=== PATIENT | female | born 1930 | race Caucasian/White ===

== ENCOUNTER → 2019-01-07 | Outpatient (CLI) | payer MEDICARE, OTHER ==
--- NOTE | 2019-01-07 14:23 | KCIC ---
MRI of the cervical spine without contrast 01/07/2019 CLINICAL HISTORY: Chronic neck pain. Balance problems. Unsteady gait. TECHNIQUE: Unenhanced T1-weighted, T2-weighted and inversion recovery sagittal and gradient echo and T2-weighted axial images of the cervical spine were obtained. FINDINGS: Minimal lateral curvature of the cervical spine is seen convex to the right. There is straightening of the normal cervical lordosis. Degenerative signal changes and loss of height are seen involving all of the disks of the cervical spine. Degenerative signal changes are seen within the marrow surrounding these discs. No area of abnormal signal intensity is seen involving the cervical spinal cord. At the C2-3 disc space there is a minimal generalized disc bulge. Degenerative changes are seen involving the uncovertebral and facet joints, right greater than left. These findings do not result in significant central spinal canal or neural foraminal stenosis. At the C3-4 disc space there is a mild generalized disc bulge. Degenerative changes are seen involving the uncovertebral and facet joints, right greater than left. These findings efface the anterior and posterior CSF resulting in mild central spinal canal stenosis without evidence of cord impingement. No neural foraminal stenosis is seen. At the C4-5 disc space there is a mild generalized disc bulge. Degenerative changes are seen involving the uncovertebral and facet joints, right greater than left. These findings efface the anterior and posterior CSF resulting in mild central spinal canal stenosis without evidence of cord impingement. Mild right neural foraminal stenosis is seen. The left neural foramen is patent. At the C5-6 disc space there is a mild generalized disc bulge. Degenerative changes are seen involving the uncovertebral and facet joints bilaterally. These findings efface the anterior and posterior CSF resulting in mild central spinal canal stenosis without evidence of cord impingement. Mild to moderate left greater than right neural foraminal stenosis is seen. At the C6-7 disc space there is a minimal generalized disc bulge. Degenerative changes are seen involving the uncovertebral and facet joints bilaterally. These findings do not result in significant central spinal canal or neural foraminal stenosis. At the C7-T1 disc space there is a minimal generalized disc bulge. Degenerative changes are seen involving the uncovertebral and facet joints bilaterally. These findings do not result in significant central spinal canal or neural foraminal stenosis. IMPRESSION: Degenerative changes are seen throughout the cervical spine. These findings result in mild central spinal canal stenosis at C3-4, C4-5 and C5-6 without evidence of cord impingement. Mild right neural foraminal stenosis is seen at C4-5. Mild to moderate left greater than right neural foraminal stenosis is seen at C5-6. Electronically signed by: Humberto Deleon MD (01/07/2019 2:20 PM) [facility]
== END | disposition home or self-care (01) ==
LOC: KCIC MRI 07:49
PROVIDERS: ATTEND Physical Medicine & Rehabilitation
DX: M48.02 Spinal stenosis, cervical region (principal); M47.813 Spondylosis without myelopathy or radiculopathy, cervicothoracic region; M50.23 Other cervical disc displacement, cervicothoracic region
CPT/HCPCS: 72141

== ENCOUNTER 2019-10-28 21:41 | Inpatient (IN) | payer MEDICARE, OTHER ==
[~2019-10-28] VITALS: Ht 170.2 cm; Wt 63.1 kg
[2019-10-28] MEDS ORDERED: ACETAMINOPHEN 500 MG TABLET PO ONE (23:45)
[2019-10-29] MEDS ORDERED: MORPHINE SULFATE 2 MG/ML VIAL. IV PRN
--- NOTE | 2019-10-29 00:06 | PHYS DOC ---
Past Medical History Past Medical History: CAD, COPD, Dementia, Heart Disease, Renal Failure Past Surgical History: No Surgical History Alcohol Use: None Adult General Chief Complaint Chief Complaint: MECHANICAL FALL HPI HPI 89-year-old female who fell at nursing facility with complaints of left hip pain, shortened externally rotated this happened around 5:30 PM. X-rays obtained as an outpatient unable to view images however repeat here reveals evidence of left hip fracture. Patient complains of pain on exam however no nausea or vomiting. Patient denies any headache, visual change, nausea, vomiting, ab dominal pain. Patient has underlying history of COPD, oxygenation therapy at night, coronary artery disease. Daughter is at bedside with questions answered. Review of Systems Review of Systems Constitutional: Denies fever or chills [] Respiratory: Denies cough or shortness of breath [] Cardiovascular: No additional information not addressed in HPI [] GI: Denies abdominal pain, nausea, vomiting, bloody stools or diarrhea [] : Denies dysuria or hematuria [] Musculoskeletal: left hip Neurologic: Denies headache, focal weakness or sensory changes [] All other systems were reviewed and found to be within normal limits, except as documented in this note. Current Medications Current Medications Current Medications Medications (Trade) Dose Ordered Sig/Marcell Start Time Stop Time Status Last Admin Dose Admin Acetaminophen (Tylenol) 1,000 mg 1X ONCE 10/28/19 23:45 10/28/19 23:46 DC 10/28/19 23:45 1,000 MG Allergies Allergies Allergies Coded Allergies Type Severity Reaction Last Updated Verified No Known Drug Allergies 10/28/19 No Physical Exam Physical Exam Constitutional: Well developed, well nourished, no acute distress, non-toxic appearance. [] HENT: Normocephalic, atraumatic, bilateral external ears normal, oropharynx moist, no oral exudates, nose normal. [] Eyes: PERRLA, EOMI, conjunctiva normal, no discharge. [] Cardiovascular:Heart rate regular rhythm, no murmur [] Lungs & Thorax: Bilateral breath sounds clear to auscultation [] Abdomen: Bowel sounds normal, soft, no tenderness, no masses, no pulsatile masses. [] Skin: Warm, dry, no erythema, no rash. [] Back: No tenderness, no CVA tenderness. [] Extremities: TTP left hip, shortened, externally rotated [] Neurologic: Alert and oriented X 3, no focal deficits noted. [] Psychologic: Affect normal, judgement normal, mood normal. [] Current Patient Data Vital Signs Vital Signs Date Time Temp Pulse Resp B/P (MAP) Pulse Ox O2 Delivery O2 Flow Rate FiO2 10/28/19 21:45 97.8 79 18 158/68 (98) 94 Room Air 97.8 EKG EKG EKG reviewed, normal sinus rhythm, heart rate 77, normal axis, no evidence of ST elevation [place], interpretation time [id number][] Radiology/Procedures Radiology/Procedures [facility] [address] [place] [address] IMAGING REPORT Signed PATIENT: NIKKY BERRY LACCOUNT: [id number] : 1930 LOCATION: [address] [place] [address] AGE: 89 SEX: F EXAM STATUS: ADM IN ORD. PHYSICIAN: CLAUDE LEACH MD REASON: left hip fracture PROCEDURE: HIP 1V LEFT EXAM: AP pelvis DATE: 10/28/2019 11:34 PM INDICATION: Left hip pain, injury COMPARISON: No Prior FINDINGS/ IMPRESSION: Nonstandard projection of the pelvis submitted for evaluation. Intertrochanteric left hip fracture is seen with varus deformity and proximal migration of the distal component. Decreased bone mineral density. Moderate to large volume colonic gas and stool limits evaluation of the sacrum and spine. Electronically signed by: Burton Pate MD (10/29/2019 12:08 AM) [facility] [place] DICTATED and SIGNED BY: BURTON PATE MD DATE: 10/29/19 0008 [] Course & Med Decision Making Course & Med Decision Making Pertinent Labs and Imaging studies reviewed. (See chart for details) []89-year-old female who fell at nursing facility with complaints of left hip pain, shortened externally rotated this happened around 5:30 PM. X-rays obtained as an outpatient unable to view images however repeat here reveals evidence of left hip fracture. Patient complains of pain on exam however no nausea or vom iting. Patient denies any headache, visual change, nausea, vomiting, abdominal pain. Patient has underlying history of COPD, oxygenation therapy at night, coronary artery disease. Daughter is at bedside with questions answered. Labs reviewed Xray with evidence of intertrochanteric hip fracture Creat 2.5 - CKD Discussed findings with patient and family at bedside Recommend admit and ortho consult discussed with Dr. Senia Verduzco Disclaimer Dax Disclaimer This electronic medical record was generated, in whole or in part, using a voice recognition dictation system. Departure Departure Impression: Primary Impression: Intertrochanteric fracture of left femur Additional Impressions: COPD without exacerbation Chronic kidney disease Disposition: ADMITTED INPATIENT Admitting Physician: HIMFrench Condition: STABLE Referrals: LORENA DOMINGUEZ DO (PCP) Problem Qualifiers Primary Impression: Intertrochanteric fracture of left femur Encounter type: initial encounter Fracture type: closed Fracture alignment: nondisplaced Qualified Codes: S72.145A - Nondisplaced intertrochanteric fracture of left femur, initial encounter for closed fracture Additional Impressions: Chronic kidney disease Chronic kidney disease stage: stage 3 (moderate) Qualified Codes: N18.3 - Chronic kidney disease, stage 3 (moderate) CLAUDE LEACH MD Oct 29, 2019 00:06
[2019-10-29 00:07] LABS: BASO # 0.1 x10^3/uL (0.0-0.2); BASO % 1 % (0-3); EOS # 0.1 x10^3/uL (0.0-0.7); EOS % 1 % (0-3); HEMATOCRIT 30.1 % (36.0-47.0); LYMPH # 0.6 x10^3/uL (1.0-4.8); LYMPH % 7 % (24-48); MEAN CORPUSCULAR HEMOGLOBIN 30 pg (25-35); MEAN CORPUSCULAR HGB CONC 33 g/dL (31-37); MEAN CORPUSCULAR VOLUME 90 fL (79-100); MONO # 0.5 x10^3/uL (0.0-1.1); MONO % 6 % (0-9); NEUT # 7.6 x10^3/uL (1.8-7.7); NEUT % 86 % (31-73); PLATELET COUNT 207 x10^3/uL (140-400); RED BLOOD COUNT 3.34 x10^6/uL (3.50-5.40); RED CELL DISTRIBUTION WIDTH 14.7 % (11.5-14.5); WHITE BLOOD COUNT 8.9 x10^3/uL (4.0-11.0)
--- NOTE | 2019-10-29 00:10 | RAD ---
EXAM: AP View of the chest DATE: 10/28/2019 11:19 PM INDICATION: Surgery, preoperative COMPARISON: No Prior FINDINGS/ IMPRESSION: The heart is not enlarged. Atherosclerotic calcifications of the tortuous aorta are seen. Normal bilateral basilar patchy opacities likely atelectasis. No pleural effusion or pneumothorax. Electronically signed by: Burton Tran MD (10/29/2019 12:07 AM) [facility] [place]
--- NOTE | 2019-10-29 00:11 | RAD ---
EXAM: AP pelvis DATE: 10/28/2019 11:34 PM INDICATION: Left hip pain, injury COMPARISON: No Prior FINDINGS/ IMPRESSION: Nonstandard projection of the pelvis submitted for evaluation. Intertrochanteric left hip fracture is seen with varus deformity and proximal migration of the distal component. Decreased bone mineral density. Moderate to large volume colonic gas and stool limits evaluation of the sacrum and spine. Electronically signed by: Burton Tran MD (10/29/2019 12:08 AM) [facility]
[2019-10-29 00:13] LABS: PROTHROMBIN TIME PATIENT 15.5 SEC (11.7-14.0)
[2019-10-29 00:16] LABS: CALCIUM 8.5 mg/dL (8.5-10.1); CREATININE 2.5 mg/dL (0.6-1.0); GFR 18.2; POTASSIUM 4.1 mmol/L (3.5-5.1)
[2019-10-29 00:31] LABS: ALBUMIN/GLOBULIN RATIO 0.9 (1.0-1.7); TOTAL BILIRUBIN 0.3 mg/dL (0.2-1.0); TOTAL PROTEIN 6.2 g/dL (6.4-8.2)
[2019-10-29 00:32] LABS: % BANDS 3 % (0-9); % LYMPHS 5 % (24-48); % MONOS 3 % (0-10); % SEGS 89 % (35-66); PLT ESTIMATE ADEQUATE (ADEQUATE)
--- NOTE | 2019-10-29 01:00 | NUR ---
The patient, NIKKY BERRY, 89 y/o, F admitted by DIEGO MARISCAL III, DO, was given written information regarding hospital policies, unit procedures and contact persons. Valuables were checked and given to family.
[2019-10-29 03:16] VITALS: BP 116/72
[2019-10-29] MEDS: IPRATRPIUM/ALBUTEROL 0.5/2.5MG 3 ML NEBU. NEB SCH ×6 (06:49→20:08)
[2019-10-29 07:00] VITALS: BP 121/52
--- NOTE | 2019-10-29 07:30 | EKG ---
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
[2019-10-29] MEDS ORDERED: ASPI-630 PO (07:55)
--- NOTE | 2019-10-29 08:09 | RAD ---
EXAM: HIP LEFT 1 VIEW WITH PELVIS. HISTORY: Fall, fracture. COMPARISON: 10/28/2019. FINDINGS: There is an impacted, medially angulated, comminuted fracture of the left intertrochanteric femur. The joint spaces of both hips are maintained for patient age. Osteopenia appears mild to moderate for patient age. No pelvic fractures are identified. There are vertebroplasty changes at L3. Atherosclerotic calcifications are noted. IMPRESSION: 1. Comminuted, medially angulated fracture of the left intertrochanteric femur. Electronically signed by: Mary Wade MD (10/29/2019 8:06 AM) [facility]
[2019-10-29] MEDS ORDERED: MELA5TAB11 SL (08:16)
[2019-10-29] MEDS ORDERED: MIRA25TA PO (08:16)
[2019-10-29] MEDS ORDERED: MEMA10TA PO (08:16)
[2019-10-29] MEDS ORDERED: CALC3.7S5 NS (08:16)
[2019-10-29] MEDS ORDERED: BUDE0.5A NEB (08:16)
[2019-10-29] MEDS ORDERED: NITR0.4T22 SL (08:16)
[2019-10-29] MEDS ORDERED: ESCITALOPRAM OX10 MG PO (08:16)
[2019-10-29] MEDS ORDERED: LOSA-73 PO (08:16)
[2019-10-29] MEDS ORDERED: IPRA3AMP29 NEB (08:16)
--- NOTE | 2019-10-29 09:14 | PDOC1 ---
History and Physical Date of Admission Date of Admission DATE: 10/29/19 TIME: 09:13 Identification/Chief Complaint Chief Complaint SEEN IN ER , Fell at nursing facility with complaints of left hip pain, shortened externally rotated this happened around 5:30 PM 10/28 . X-rays obtained images however repeat here reveals evidence of left hip fracture. Patient complains of pain on exam however no nausea or vomiting. // denies any headache, visual change, nausea, vomiting, abdominal pain. HX underlying history of COPD, oxygenation therapy at night, coronary artery disease. STATES SHE NEVER SMOKED , BUT HAS HX COPD, [place] DID NOT S[place], DENIES COUGH, does not know correct year or month, but otherwise has fair remote memory Past Medical History Past Medical History Past Medical History Past Medical History Past Medical History: CAD, COPD, Dementia, Heart Disease, Renal Failure Past Surgical History: No Surgical History Alcohol Use: None Cardiovascular: CAD, HTN Musculoskeletal: Osteoarthritis Family History Family History: Hypertension Social History Smoke: No ALCOHOL: none Drugs: None Current Problem List Problem List Problems Medical Problems: (1) Chronic kidney disease Status: Acute (2) Intertrochanteric fracture of left femur Status: Acute Current Medications Current Medications Current Medications Acetaminophen (Tylenol) 1,000 mg 1X ONCE PO Last administered on 10/28/19at 23:45; Start 10/28/19 at 23:45; Stop 10/28/19 at 23:46; Status DC Ondansetron HCl (Zofran) 4 mg PRN Q8HRS PRN IV NAUSEA/VOMITING 1ST CHOICE; Start 10/29/19 at 00:00; Stop 10/29/19 at 23:59 Morphine Sulfate (Morphine Sulfate) 2 mg PRN Q2HR PRN IV SEVERE PAIN 7-10 Last administered on 10/29/19at 01:24; Start 10/29/19 at 00:00; Stop 10/29/19 at 23:59 Albuterol/ Ipratropium (Duoneb) 3 ml RTQID NEB Last administered on 10/29/19at 06:49; Start 10/29/19 at 08:00; Stop 10/30/19 at 07:59 Active Scripts Active Reported NITROGLYCERIN SubLingual (Nitroglycerin) 0.4 Mg Tab.subl 0.4 Mg SL PRN Q5MIN PRN Namenda (Memantine Hcl) 10 Mg Tablet 10 Mg PO BID Myrbetriq (Mirabegron) 25 Mg Tab.er.24h 25 Mg PO DAILY Melatonin 5 Mg Tab.subl 1 Tab SL QHS 30 Days Losartan Potassium 50 Mg Tablet 6.25 Mg PO DAILY08 Escitalopram Oxalate 10 Mg Tablet 1 Tab PO QHS Duoneb 0.5-3(2.5) Mg/3 Ml (Albuterol/Ipratropium) 3 Ml Ampul.neb 3 Ml NEB QID Calcitonin-Higdon (Calcitonin,Higdon,Synthetic) 3.7 Ml [place].pump 1 [place] NS DAILY 30 Days Budesonide 0.5 Mg/2 Ml Ampul.neb 1 Vial NEB BID Aspirin 81 Mg Tab.chew 1 Tab PO DAILY Allergies Allergies: Coded Allergies: No Known Drug Allergies (Unverified , 10/28/19) ROS Review of System Review of Systems Review of Systems Constitutional: Denies fever or chills [] Respiratory: Denies cough or shortness of breath [] Cardiovascular: No additional information not addressed in HPI [] GI: Denies abdominal pain, nausea, vomiting, bloody stools or diarrhea [] : Denies dysuria or hematuria [] Musculoskeletal: left hip Neurologic: Denies headache, focal weakness or sensory changes [] 14 PT systems were reviewed and found to be within normal limits, except as documented Physical Exam Physical Exam Physical Exam Physical Exam Constitutional: Well developed, well nourished, no acute distress, non-toxic appearance. [] HENT: Normocephalic, atraumatic, bilateral external ears normal, oropharynx moist, no oral exudates, nose normal. [] Eyes: PERRLA, EOMI, conjunctiva normal, no discharge. [] Cardiovascular:Heart rate regular rhythm, no murmur [] Lungs & Thorax: Bilateral breath sounds clear to auscultation [] Abdomen: Bowel sounds normal, soft, no tenderness, no masses, no pulsatile masses. [] Skin: Warm, dry, no erythema, no rash. [] Back: No tenderness, no CVA tenderness. [] Extremities: TTP left hip, shortened, externally rotated [] Neurologic: Alert no focal deficits noted. [] Psychologic: Affect normal, mood normal. [] General: Cooperative Lungs: Clear to auscultation Breasts: Not examined Abdomen: Normal bowel sounds, Soft Rectal Exam: not examined Extremities: No cyanosis Psych/Mental Status: Mood NL Vitals Vitals Vital Signs Date Time Temp Pulse Resp B/P (MAP) Pulse Ox O2 Delivery O2 Flow Rate FiO2 10/29/19 07:00 98.3 72 18 121/52 (75) 94 Room Air 98.3 Labs Labs Laboratory Tests Test 10/28/19 23:55 White Blood Count 8.9 x10^3/uL (4.0-11.0) Red Blood Count 3.34 x10^6/uL (3.50-5.40) Hemoglobin 10.0 g/dL (12.0-15.5) Hematocrit 30.1 % (36.0-47.0) Mean Corpuscular Volume 90 fL (79-100) Mean Corpuscular Hemoglobin 30 pg (25-35) Mean Corpuscular Hemoglobin Concent 33 g/dL (31-37) Red Cell Distribution Width 14.7 % (11.5-14.5) Platelet Count 207 x10^3/uL (140-400) Neutrophils (%) (Auto) 86 % (31-73) Lymphocytes (%) (Auto) 7 % (24-48) Monocytes (%) (Auto) 6 % (0-9) Eosinophils (%) (Auto) 1 % (0-3) Basophils (%) (Auto) 1 % (0-3) Neutrophils # (Auto) 7.6 x10^3/uL (1.8-7.7) Lymphocytes # (Auto) 0.6 x10^3/uL (1.0-4.8) Monocytes # (Auto) 0.5 x10^3/uL (0.0-1.1) Eosinophils # (Auto) 0.1 x10^3/uL (0.0-0.7) Basophils # (Auto) 0.1 x10^3/uL (0.0-0.2) Segmented Neutrophils % 89 % (35-66) Band Neutrophils % 3 % (0-9) Lymphocytes % 5 % (24-48) Monocytes % 3 % (0-10) Platelet Estimate Adequate (ADEQUATE) Prothrombin Time 15.5 SEC (11.7-14.0) Prothromb Time International Ratio 1.3 (0.8-1.1) Sodium Level 139 mmol/L (136-145) Potassium Level 4.1 mmol/L (3.5-5.1) Chloride Level 103 mmol/L (98-107) Carbon Dioxide Level 25 mmol/L (21-32) Anion Gap 11 (6-14) Blood Urea Nitrogen 34 mg/dL (7-20) Creatinine 2.5 mg/dL (0.6-1.0) Estimated GFR (Cockcroft-Gault) 18.2 BUN/Creatinine Ratio 14 (6-20) Glucose Level 139 mg/dL (70-99) Calcium Level 8.5 mg/dL (8.5-10.1) Total Bilirubin 0.3 mg/dL (0.2-1.0) Aspartate Amino Transf (AST/SGOT) 15 U/L (15-37) Alanine Aminotransferase (ALT/SGPT) 7 U/L (14-59) Alkaline Phosphatase 70 U/L (46-116) Total Protein 6.2 g/dL (6.4-8.2) Albumin 3.0 g/dL (3.4-5.0) Albumin/Globulin Ratio 0.9 (1.0-1.7) Laboratory Tests Test 10/28/19 23:55 White Blood Count 8.9 x10^3/uL (4.0-11.0) Red Blood Count 3.34 x10^6/uL (3.50-5.40) Hemoglobin 10.0 g/dL (12.0-15.5) Hematocrit 30.1 % (36.0-47.0) Mean Corpuscular Volume 90 fL (79-100) Mean Corpuscular Hemoglobin 30 pg (25-35) Mean Corpuscular Hemoglobin Concent 33 g/dL (31-37) Red Cell Distribution Width 14.7 % (11.5-14.5) Platelet Count 207 x10^3/uL (140-400) Neutrophils (%) (Auto) 86 % (31-73) Lymphocytes (%) (Auto) 7 % (24-48) Monocytes (%) (Auto) 6 % (0-9) Eosinophils (%) (Auto) 1 % (0-3) Basophils (%) (Auto) 1 % (0-3) Neutrophils # (Auto) 7.6 x10^3/uL (1.8-7.7) Lymphocytes # (Auto) 0.6 x10^3/uL (1.0-4.8) Monocytes # (Auto) 0.5 x10^3/uL (0.0-1.1) Eosinophils # (Auto) 0.1 x10^3/uL (0.0-0.7) Basophils # (Auto) 0.1 x10^3/uL (0.0-0.2) Segmented Neutrophils % 89 % (35-66) Band Neutrophils % 3 % (0-9) Lymphocytes % 5 % (24-48) Monocytes % 3 % (0-10) Platelet Estimate Adequate (ADEQUATE) Prothrombin Time 15.5 SEC (11.7-14.0) Prothromb Time International Ratio 1.3 (0.8-1.1) Sodium Level 139 mmol/L (136-145) Potassium Level 4.1 mmol/L (3.5-5.1) Chloride Level 103 mmol/L (98-107) Carbon Dioxide Level 25 mmol/L (21-32) Anion Gap 11 (6-14) Blood Urea Nitrogen 34 mg/dL (7-20) Creatinine 2.5 mg/dL (0.6-1.0) Estimated GFR (Cockcroft-Gault) 18.2 BUN/Creatinine Ratio 14 (6-20) Glucose Level 139 mg/dL (70-99) Calcium Level 8.5 mg/dL (8.5-10.1) Total Bilirubin 0.3 mg/dL (0.2-1.0) Aspartate Amino Transf (AST/SGOT) 15 U/L (15-37) Alanine Aminotransferase (ALT/SGPT) 7 U/L (14-59) Alkaline Phosphatase 70 U/L (46-116) Total Protein 6.2 g/dL (6.4-8.2) Albumin 3.0 g/dL (3.4-5.0) Albumin/Globulin Ratio 0.9 (1.0-1.7) Images Images Intertrochanteric left hip fracture is seen with varus deformity and proximal migration of the distal component. Decreased bone mineral density. EXAM: AP View of the chest DATE: 10/28/2019 11:19 PM INDICATION: Surgery, preoperative COMPARISON: No Prior FINDINGS/ IMPRESSION: The heart is not enlarged. Atherosclerotic calcifications of the tortuous aorta are seen. Normal bilateral basilar patchy opacities likely atelectasis. No pleural effusion or pneumothorax. Electronically signed by: Burton Tran MD (10/29/2019 12:07 AM) [facility] DICTATED and SIGNED BY: BURTON TRAN MD VTE Prophylaxis Ordered VTE Prophylaxis Devices: No VTE Pharmacological Prophylaxi: Yes Assessment/Plan Assessment/Plan IMPRESSION mechanical fall ACUTE Intertrochanteric left hip fracture is seen with varus deformity and prox imal migration of the distal component. Decreased bone mineral density. C/W OSTEOPOROSIS COPD hx HTN DEMENTIA. mild-moderate PLAN ADMIT ORTHO CONSULT IV PAIN CONTROL IV FLUID SUPPORT DVT PROPHYLAXIS MAYNOR ECHEVARRIA MD Oct 29, 2019 09:14
[2019-10-29 11:00] VITALS: BP 128/56
--- NOTE | 2019-10-29 12:55 | PDOC2 ---
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 Due to pain and inability to ambulate she was brought into the emergency department and admitted for care of her hip fracture. She is complaining of left hip pain, denies hitting anything else on the way down, denies any preceding symptoms. Her pain is worse with any attempted weightbearing or movement of her hip. His low bit better at rest in bed. Current Problem List Problem List Problems Medical Problems: (1) Chronic kidney disease Status: Acute (2) Intertrochanteric fracture of left femur Status: Acute Current Medications Current Medications Current Medications Acetaminophen (Tylenol) 1,000 mg 1X ONCE PO Last administered on 10/28/19at 23:45; Start 10/28/19 at 23:45; Stop 10/28/19 at 23:46; Status DC Ondansetron HCl (Zofran) 4 mg PRN Q8HRS PRN IV NAUSEA/VOMITING 1ST CHOICE; Start 10/29/19 at 00:00; Stop 10/29/19 at 23:59 Morphine Sulfate (Morphine Sulfate) 2 mg PRN Q2HR PRN IV SEVERE PAIN 7-10 Last administered on 10/29/19at 01:24; Start 10/29/19 at 00:00; Stop 10/29/19 at 23:59 Albuterol/ Ipratropium (Duoneb) 3 ml RTQID NEB Last administered on 10/29/19at 06:49; Start 10/29/19 at 08:00; Stop 10/30/19 at 07:59 Fentanyl Citrate (Fentanyl 2ml Vial) 25 mcg PRN Q5MIN PRN IV MILD PAIN 1-3; Start 10/30/19 at 07:00; Stop 10/31/19 at 06:59 Fentanyl Citrate (Fentanyl 2ml Vial) 50 mcg PRN Q5MIN PRN IV MODERATE TO SEVERE PAIN; Start 10/30/19 at 07:00; Stop 10/31/19 at 06:59 Morphine Sulfate (Morphine Sulfate) 1 mg PRN Q10MIN PRN IV SEVERE PAIN 7-10; Start 10/30/19 at 07:00; Stop 10/31/19 at 06:59 Ringer's Solution 1,000 ml @ 30 mls/hr Q24H IV ; Start 10/30/19 at 07:00; Stop 10/30/19 at 18:59 Lidocaine HCl (Xylocaine-Mpf 1% 2ml Vial) 2 ml PRN 1X PRN ID PRIOR TO IV START; Start 10/30/19 at 07:00; Stop 10/31/19 at 06:59 Hydromorphone HCl (Dilaudid) 0.5 mg PRN Q10MIN PRN IV SEV PAIN, Second choice; Start 10/30/19 at 07:00; Stop 10/31/19 at 06:59 Prochlorperazine Edisylate (Compazine) 5 mg PACU PRN PRN IV NAUSEA, MRX1; Start 10/30/19 at 07:00; Stop 10/31/19 at 06:59 Active Scripts Active Reported NITROGLYCERIN SubLingual (Nitroglycerin) 0.4 Mg Tab.subl 0.4 Mg SL PRN Q5MIN PRN Namenda (Memantine Hcl) 10 Mg Tablet 10 Mg PO BID Myrbetriq (Mirabegron) 25 Mg Tab.er.24h 25 Mg PO DAILY Melatonin 5 Mg Tab.subl 1 Tab SL QHS 30 Days Losartan Potassium 50 Mg Tablet 6.25 Mg PO DAILY08 Escitalopram Oxalate 10 Mg Tablet 1 Tab PO QHS Duoneb 0.5-3(2.5) Mg/3 Ml (Albuterol/Ipratropium) 3 Ml Ampul.neb 3 Ml NEB QID Calcitonin-[place] (Calcitonin,[place],Synthetic) 3.7 Ml [place].pump 1 [place] NS DAILY 30 Days Budesonide 0.5 Mg/2 Ml Ampul.neb 1 Vial NEB BID Aspirin 81 Mg Tab.chew 1 Tab PO DAILY Allergies Allergies: Coded Allergies: No Known Drug Allergies (Unverified , 10/28/19) ROS General: No: Chills, Night Sweats, Fatigue, Malaise, Appetite, Other PSYCHOLOGICAL ROS: No: Anxiety, Behavioral Disorder, Concentration difficultie, Decreased libido, Depression, Disorientation, Hallucinations, Hostility, Irritablity, Memory difficulties, Mood Swings, Obsessive thoughts, Physical abuse, Sexual abuse, Sleep disturbances, Suicidal ideation, Other Eyes: No Blurry vision, No Decreased vision, No Double vision, No Dry eyes, No Excessive tearing, No Eye Pain, No Itchy Eyes, No Loss of vision, No Photophobia, No Scotomata, No Uses contacts, No Uses glasses, No Other HEENT: No: Heacaches, Visual Changes, Hearing change, Nasal congestion, Nasal discharge, Oral lesions, Sinus pain, Sore Throat, Epistaxis, Sneezing, Snoring, Tinnitus, Vertigo, Vocal changes, Other ALLERGY AND IMMUNOLOGY: No: Hives, Insect Bite Sensitivity, Itchy/Watery Eyes, Nasal Congestion, Post Nasal Drip, Seasonal Allergies, Other Hematological and Lymphatic: No: Bleeding Problems, Blood Clots, Blood Transfusions, Brusing, Night Sweats, Pallor, Swollen Lymph Nodes, Other ENDOCRINE: No: Breast Changes, Galactorrhea, Hair Pattern Changes, Hot Flashes, Malaise/lethargy, Mood Swings, Palpitations, Polydipsia/polyuria, Skin Changes, Temperature Intolerance, Unexpected Weight Changes, Other Respiratory: YES: SOB with excertion; No: Cough, Hemoptysis, Orthopnea, Pleuritic Pain, Shortness of breath, Sputum Changes, Stridor, Tachypnea, Wheezing, Other Cardiovascular: No Chest Pain, No Palpitations, No Orthopnea, No Paroxysmal Noc . Dyspnea, No Edema, No Lt Headedness, No Other Gastrointestinal: No Nausea, No Vomiting, No Abdominal Pain, No Diarrhea, No Constipation, No Melena, No Hematochezia, No Other Genitourinary: No Dysuria, No Frequency, No Incontinence, No Hematuria, No Retention, No Discharge, No Urgency, No Pain, No Flank Pain, No Other, No , No , No , No , No , No , No Musculoskeletal: Yes Joint Pain Neurological: No Behavorial Changes, No Bowel/Bladder ControlChng, No Confusion, No Dizziness, No Gait Disturbance, No Headaches, No Impaired Coord/balance, No Memory Loss, No Numbness/Tingling, No Seizures, No Speech Problems, No Tremors, No Visual Changes, No Weakness, No Other Physical Exam General: Alert, Oriented X3 HEENT: Atraumatic, EOMI Lungs: Other (respirations are unlabored with symmetric chest rise) Heart: Regular rate Abdomen: Soft, No tenderness Extremities: No edema, Normal pulses Neuro: Normal speech, Strength at 5/5 X4 ext, Sensation intact Psych/Mental Status: Mental status NL, Mood NL MUSCULOSKELETAL: Other (left lower extremity is shortened and slightly actually rotated. Normal motor and sensation are present in her feet. No tenderness at pelvis knees or ankles) Vitals VITALS Vital Signs Date Time Temp Pulse Resp B/P (MAP) Pulse Ox O2 Delivery O2 Flow Rate FiO2 10/29/19 11:00 98.6 67 18 128/56 (80) 94 Room Air 98.6 Labs Labs Laboratory Tests Test 10/28/19 23:55 White Blood Count 8.9 x10^3/uL (4.0-11.0) Red Blood Count 3.34 x10^6/uL (3.50-5.40) Hemoglobin 10.0 g/dL (12.0-15.5) Hematocrit 30.1 % (36.0-47.0) Mean Corpuscular Volume 90 fL (79-100) Mean Corpuscular Hemoglobin 30 pg (25-35) Mean Corpuscular Hemoglobin Concent 33 g/dL (31-37) Red Cell Distribution Width 14.7 % (11.5-14.5) Platelet Count 207 x10^3/uL (140-400) Neutrophils (%) (Auto) 86 % (31-73) Lymphocytes (%) (Auto) 7 % (24-48) Monocytes (%) (Auto) 6 % (0-9) Eosinophils (%) (Auto) 1 % (0-3) Basophils (%) (Auto) 1 % (0-3) Neutrophils # (Auto) 7.6 x10^3/uL (1.8-7.7) Lymphocytes # (Auto) 0.6 x10^3/uL (1.0-4.8) Monocytes # (Auto) 0.5 x10^3/uL (0.0-1.1) Eosinophils # (Auto) 0.1 x10^3/uL (0.0-0.7) Basophils # (Auto) 0.1 x10^3/uL (0.0-0.2) Segmented Neutrophils % 89 % (35-66) Band Neutrophils % 3 % (0-9) Lymphocytes % 5 % (24-48) Monocytes % 3 % (0-10) Platelet Estimate Adequate (ADEQUATE) Prothrombin Time 15.5 SEC (11.7-14.0) Prothromb Time International Ratio 1.3 (0.8-1.1) Sodium Level 139 mmol/L (136-145) Potassium Level 4.1 mmol/L (3.5-5.1) Chloride Level 103 mmol/L (98-107) Carbon Dioxide Level 25 mmol/L (21-32) Anion Gap 11 (6-14) Blood Urea Nitrogen 34 mg/dL (7-20) Creatinine 2.5 mg/dL (0.6-1.0) Estimated GFR (Cockcroft-Gault) 18.2 BUN/Creatinine Ratio 14 (6-20) Glucose Level 139 mg/dL (70-99) Calcium Level 8.5 mg/dL (8.5-10.1) Total Bilirubin 0.3 mg/dL (0.2-1.0) Aspartate Amino Transf (AST/SGOT) 15 U/L (15-37) Alanine Aminotransferase (ALT/SGPT) 7 U/L (14-59) Alkaline Phosphatase 70 U/L (46-116) Total Protein 6.2 g/dL (6.4-8.2) Albumin 3.0 g/dL (3.4-5.0) Albumin/Globulin Ratio 0.9 (1.0-1.7) Laboratory Tests Test 10/28/19 23:55 White Blood Count 8.9 x10^3/uL (4.0-11.0) Red Blood Count 3.34 x10^6/uL (3.50-5.40) Hemoglobin 10.0 g/dL (12.0-15.5) Hematocrit 30.1 % (36.0-47.0) Mean Corpuscular Volume 90 fL (79-100) Mean Corpuscular Hemoglobin 30 pg (25-35) Mean Corpuscular Hemoglobin Concent 33 g/dL (31-37) Red Cell Distribution Width 14.7 % (11.5-14.5) Platelet Count 207 x10^3/uL (140-400) Neutrophils (%) (Auto) 86 % (31-73) Lymphocytes (%) (Auto) 7 % (24-48) Monocytes (%) (Auto) 6 % (0-9) Eosinophils (%) (Auto) 1 % (0-3) Basophils (%) (Auto) 1 % (0-3) Neutrophils # (Auto) 7.6 x10^3/uL (1.8-7.7) Lymphocytes # (Auto) 0.6 x10^3/uL (1.0-4.8) Monocytes # (Auto) 0.5 x10^3/uL (0.0-1.1) Eosinophils # (Auto) 0.1 x10^3/uL (0.0-0.7) Basophils # (Auto) 0.1 x10^3/uL (0.0-0.2) Segmented Neutrophils % 89 % (35-66) Band Neutrophils % 3 % (0-9) Lymphocytes % 5 % (24-48) Monocytes % 3 % (0-10) Platelet Estimate Adequate (ADEQUATE) Prothrombin Time 15.5 SEC (11.7-14.0) Prothromb Time International Ratio 1.3 (0.8-1.1) Sodium Level 139 mmol/L (136-145) Potassium Level 4.1 mmol/L (3.5-5.1) Chloride Level 103 mmol/L (98-107) Carbon Dioxide Level 25 mmol/L (21-32) Anion Gap 11 (6-14) Blood Urea Nitrogen 34 mg/dL (7-20) Creatinine 2.5 mg/dL (0.6-1.0) Estimated GFR (Cockcroft-Gault) 18.2 BUN/Creatinine Ratio 14 (6-20) Glucose Level 139 mg/dL (70-99) Calcium Level 8.5 mg/dL (8.5-10.1) Total Bilirubin 0.3 mg/dL (0.2-1.0) Aspartate Amino Transf (AST/SGOT) 15 U/L (15-37) Alanine Aminotransferase (ALT/SGPT) 7 U/L (14-59) Alkaline Phosphatase 70 U/L (46-116) Total Protein 6.2 g/dL (6.4-8.2) Albumin 3.0 g/dL (3.4-5.0) Albumin/Globulin Ratio 0.9 (1.0-1.7) Images Images Hip and pelvis x-rays interpreted by myself. She has a intertrochanteric hip fracture. Assessment/Plan Assessment/Plan Today, I did discuss with her and her daughter that I would recommend proceeding with an intramedullary nail. I did discuss the risks, benefits, and alternatives including bleeding, blood clots, expected rehabilitation and recovery, infection and possible sequela, need for additional surgery, failure of fracture to heal, ventilator need, many other respiratory problems, heart attack stroke, among others. They would like to proceed. GALI CARRERA II, MD Oct 29, 2019 12:55
[2019-10-29] MEDS ORDERED: NITROGLYCERIN SUBLINGUAL 0.4 MG BOTTLE OF 25. SL PRN (13:00)
[2019-10-29] MEDS ORDERED: ceFAZolin SODIUM IV Push 1 GM VIAL. IVP ONE (13:00)
[2019-10-29] MEDS ORDERED: IPRATRPIUM/ALBUTEROL 0.5/2.5MG 3 ML NEBU. NEB SCH (13:00)
--- NOTE | 2019-10-29 13:20 | NUR ---
SW following. Discussed with RN. ANGELIC verified pt is from the [facility] (ph: [phone], fax: [phone]), has family involved. Surgery has been consulted. SW will continue to follow for any discharge planning needs.
[2019-10-29] MEDS: ASPIRIN CHEWABLE 81 MG TABLET. PO SCH (14:15)
[2019-10-29] MEDS: LOSARTAN POTASSIUM 25 MG TABLET. PO SCH (14:15)
[2019-10-29 15:00] VITALS: BP 133/49
[2019-10-29] MEDS ORDERED: ACETAMINOPHEN 325 MG TABLET. PO PRN (15:15)
[2019-10-29] MEDS ORDERED: MAG HYDROX/ALUMINUM HYD/SIMETH 30 ML ORAL.SUSP PO PRN (15:15)
[2019-10-29] MEDS ORDERED: 0.9 % SODIUM CHLORIDE 10 ML DISP.SYRIN. IV PRN (15:15)
[2019-10-29] MEDS ORDERED: DOCUSATE SODIUM 100 MG CAPSULE. PO PRN (15:15)
[2019-10-29] MEDS ORDERED: guaiFENesin ORAL 200 MG/10 ML LIQUID. PO PRN (15:15)
[2019-10-29] MEDS ORDERED: ONDANSETRON PF 4 MG/2 ML VIAL. IV PRN ×2 (15:15)
[2019-10-29] MEDS ORDERED: cloNIDine HCL 0.1 MG TABLET PO PRN (15:15)
[2019-10-29] MEDS ORDERED: ENOXAPARIN 30 MG/0.3 ML SYRINGE. SQ SCH (16:00)
--- NOTE | 2019-10-29 16:19 | PDOC ---
PULMONARY PROGRESS NOTES Vitals Vital Signs Date Time Temp Pulse Resp B/P (MAP) Pulse Ox O2 Delivery O2 Flow Rate FiO2 10/29/19 14:42 95 Room Air 10/29/19 14:15 67 128/56 10/29/19 11:00 98.6 18 98.6 Labs Laboratory Tests Test 10/28/19 23:55 10/29/19 01:30 White Blood Count 8.9 x10^3/uL (4.0-11.0) Red Blood Count 3.34 x10^6/uL (3.50-5.40) Hemoglobin 10.0 g/dL (12.0-15.5) Hematocrit 30.1 % (36.0-47.0) Mean Corpuscular Volume 90 fL (79-100) Mean Corpuscular Hemoglobin 30 pg (25-35) Mean Corpuscular Hemoglobin Concent 33 g/dL (31-37) Red Cell Distribution Width 14.7 % (11.5-14.5) Platelet Count 207 x10^3/uL (140-400) Neutrophils (%) (Auto) 86 % (31-73) Lymphocytes (%) (Auto) 7 % (24-48) Monocytes (%) (Auto) 6 % (0-9) Eosinophils (%) (Auto) 1 % (0-3) Basophils (%) (Auto) 1 % (0-3) Neutrophils # (Auto) 7.6 x10^3/uL (1.8-7.7) Lymphocytes # (Auto) 0.6 x10^3/uL (1.0-4.8) Monocytes # (Auto) 0.5 x10^3/uL (0.0-1.1) Eosinophils # (Auto) 0.1 x10^3/uL (0.0-0.7) Basophils # (Auto) 0.1 x10^3/uL (0.0-0.2) Segmented Neutrophils % 89 % (35-66) Band Neutrophils % 3 % (0-9) Lymphocytes % 5 % (24-48) Monocytes % 3 % (0-10) Platelet Estimate Adequate (ADEQUATE) Prothrombin Time 15.5 SEC (11.7-14.0) Prothromb Time International Ratio 1.3 (0.8-1.1) Sodium Level 139 mmol/L (136-145) Potassium Level 4.1 mmol/L (3.5-5.1) Chloride Level 103 mmol/L (98-107) Carbon Dioxide Level 25 mmol/L (21-32) Anion Gap 11 (6-14) Blood Urea Nitrogen 34 mg/dL (7-20) Creatinine 2.5 mg/dL (0.6-1.0) Estimated GFR (Cockcroft-Gault) 18.2 BUN/Creatinine Ratio 14 (6-20) Glucose Level 139 mg/dL (70-99) Calcium Level 8.5 mg/dL (8.5-10.1) Total Bilirubin 0.3 mg/dL (0.2-1.0) Aspartate Amino Transf (AST/SGOT) 15 U/L (15-37) Alanine Aminotransferase (ALT/SGPT) 7 U/L (14-59) Alkaline Phosphatase 70 U/L (46-116) Total Protein 6.2 g/dL (6.4-8.2) Albumin 3.0 g/dL (3.4-5.0) Albumin/Globulin Ratio 0.9 (1.0-1.7) Nasal Screen MRSA (PCR) Negative (Negative) Laboratory Tests Test 10/28/19 23:55 10/29/19 01:30 White Blood Count 8.9 x10^3/uL (4.0-11.0) Red Blood Count 3.34 x10^6/uL (3.50-5.40) Hemoglobin 10.0 g/dL (12.0-15.5) Hematocrit 30.1 % (36.0-47.0) Mean Corpuscular Volume 90 fL (79-100) Mean Corpuscular Hemoglobin 30 pg (25-35) Mean Corpuscular Hemoglobin Concent 33 g/dL (31-37) Red Cell Distribution Width 14.7 % (11.5-14.5) Platelet Count 207 x10^3/uL (140-400) Neutrophils (%) (Auto) 86 % (31-73) Lymphocytes (%) (Auto) 7 % (24-48) Monocytes (%) (Auto) 6 % (0-9) Eosinophils (%) (Auto) 1 % (0-3) Basophils (%) (Auto) 1 % (0-3) Neutrophils # (Auto) 7.6 x10^3/uL (1.8-7.7) Lymphocytes # (Auto) 0.6 x10^3/uL (1.0-4.8) Monocytes # (Auto) 0.5 x10^3/uL (0.0-1.1) Eosinophils # (Auto) 0.1 x10^3/uL (0.0-0.7) Basophils # (Auto) 0.1 x10^3/uL (0.0-0.2) Segmented Neutrophils % 89 % (35-66) Band Neutrophils % 3 % (0-9) Lymphocytes % 5 % (24-48) Monocytes % 3 % (0-10) Platelet Estimate Adequate (ADEQUATE) Prothrombin Time 15.5 SEC (11.7-14.0) Prothromb Time International Ratio 1.3 (0.8-1.1) Sodium Level 139 mmol/L (136-145) Potassium Level 4.1 mmol/L (3.5-5.1) Chloride Level 103 mmol/L (98-107) Carbon Dioxide Level 25 mmol/L (21-32) Anion Gap 11 (6-14) Blood Urea Nitrogen 34 mg/dL (7-20) Creatinine 2.5 mg/dL (0.6-1.0) Estimated GFR (Cockcroft-Gault) 18.2 BUN/Creatinine Ratio 14 (6-20) Glucose Level 139 mg/dL (70-99) Calcium Level 8.5 mg/dL (8.5-10.1) Total Bilirubin 0.3 mg/dL (0.2-1.0) Aspartate Amino Transf (AST/SGOT) 15 U/L (15-37) Alanine Aminotransferase (ALT/SGPT) 7 U/L (14-59) Alkaline Phosphatase 70 U/L (46-116) Total Protein 6.2 g/dL (6.4-8.2) Albumin 3.0 g/dL (3.4-5.0) Albumin/Globulin Ratio 0.9 (1.0-1.7) Nasal Screen MRSA (PCR) Negative (Negative) Medications Active Scripts Medications Dose Route/Sig Max Daily Dose Days Date Category NITROGLYCERIN SubLingual (Nitroglycerin) 0.4 Mg Tab.subl 0.4 Mg SL PRN Q5MIN PRN 10/29/19 Reported Namenda (Memantine Hcl) 10 Mg Tablet 10 Mg PO BID 10/29/19 Reported Myrbetriq (Mirabegron) 25 Mg Tab.er.24h 25 Mg PO DAILY 10/29/19 Reported Melatonin 5 Mg Tab.subl 1 Tab SL QHS 30 10/29/19 Reported Losartan Potassium 50 Mg Tablet 6.25 Mg PO DAILY08 10/29/19 Reported Escitalopram Oxalate 10 Mg Tablet 1 Tab PO QHS 10/29/19 Reported Duoneb 0.5-3(2.5) Mg/3 Ml (Albuterol/Ipratropium) 3 Ml Ampul.neb 3 Ml NEB QID 10/29/19 Reported Calcitonin-[place] (Calcitonin,[place],Synthetic) 3.7 Ml [place].pump 1 [place] NS DAILY 30 10/29/19 Reported Budesonide 0.5 Mg/2 Ml Ampul.neb 1 Vial NEB BID 10/29/19 Reported Aspirin 81 Mg Tab.chew 1 Tab PO DAILY 10/29/19 Reported Impression . NOTE DICTATED OK TO PROCEED WITH SURGERY RESP STATUS IS COMPENSTATED COPD HYPOXEMIA THANKS DUSTY RIZVI MD Oct 29, 2019 16:19
--- NOTE | 2019-10-29 17:54 | NUR ---
Lovenox: Per Dr. Lawrence, hold Lovenox dose this evening as pt is scheduled for hip procedure at 0800 tomorrow.
[2019-10-29] MEDS: IV NORMAL SALINE 1000ML BAG 1,000 ML IV SCH (18:21)
[2019-10-29 19:00] VITALS: BP 126/54
[2019-10-29] MEDS: BUDESONIDE 0.5 MG/2 ML NEBU. NEB SCH (20:07)
[2019-10-29] MEDS: MEMANTINE 10 MG TABLET. PO SCH (20:35)
[2019-10-29] MEDS ORDERED: NON FORMULARY ITEM (Melatonin 1 TAB) SL SCH (21:00)
[2019-10-29 23:00] VITALS: BP 135/76
[2019-10-30] VITALS (10 sets, daily range): BP systolic 92–117; BP diastolic 29–53
--- NOTE | 2019-10-30 03:33 | CONS ---
DATE OF CONSULTATION: 10/29/2019 ATTENDING PHYSICIAN: Dr. Gaviria. REASON FOR CONSULTATION: The patient is seen in pulmonary consultation at the request of Dr. Candelaria for preoperative evaluation, requiring a left hip repair. HISTORY OF PRESENT ILLNESS: The patient is an 89-year-old female that has never smoked, no prior history of asthma, diagnosed with adult-onset COPD. Her never smoked. She did grow up in a household with the [employer], no prior history of farming, no significant occupational or avocational exposures to account for her COPD. She normally wears oxygen at night 2 liters along with metered dose inhaler 2 puffs at bedtime. She has been using the above for the past 5 years. She has not had any acute exacerbation of chronic obstructive pulmonary disease. She denies any significant shortness of air with exertion. She denies fever, chills or night sweats. PAST MEDICAL HISTORY: Coronary artery disease with previous myocardial infarction, adult-onset COPD, mild dementia, hypertension, renal failure, and osteoarthritis. PAST SURGICAL HISTORY: No recent major surgeries. FAMILY HISTORY: Hypertension. SOCIAL HISTORY: She is a lifelong nonsmoker. She currently lives at the [facility]. REVIEW OF SYSTEMS: CONSTITUTIONAL: No fever or chills. EYES: No change in visual acuity. HENT: No nasal congestion or sore throat. PULMONARY: As indicated above. CARDIOVASCULAR: No chest pain. No pressure. GASTROINTESTINAL: No nausea, vomiting, diarrhea. GENITOURINARY: No dysuria or frequency. MUSCULOSKELETAL: No localized muscle aches or joint pains. SKIN: No new skin rashes. NEUROLOGIC: No headaches, diplopia or blurred vision. PHYSICAL EXAMINATION: VITAL SIGNS: Stable. O2 saturation was greater than 92%, currently on room air. HEENT: Eyes, the sclerae were nonicteric. NECK: Jugular venous distention was not elevated. No lymphadenopathy. CHEST: Full expansion. LUNGS: Adequate air flow, no wheezes. CARDIOVASCULAR: Regular rate and rhythm with S1, S2, no S3. ABDOMEN: Soft, nontender, nondistended. EXTREMITIES: No clubbing, cyanosis or pitting edema. NEUROLOGICAL: The patient was awake, alert, following commands. A detailed neuro exam was not performed. LABORATORY DATA: Chest x-ray revealed no acute cardiopulmonary process. White count was normal. Hemoglobin and hematocrit were noted. IMPRESSION: 1. Adult onset chronic obstructive pulmonary disease. 2. Acute left hip fracture requiring repair. 3. Osteoporosis. 4. Hypertension. PLAN: Respiratory status is compensated enough to undergo surgery, the patient has not had any recent acute exacerbation of chronic obstructive pulmonary disease. She normally wears oxygen at 2 liters at bedtime and uses p.r.n. nebulized treatments. I do appreciate the privilege in sharing in the patient's care. DUSTY RIZVI MD DR: MISTI/belinda JOB#: [id number] / [id number]
[2019-10-30] MEDS ORDERED: ceFAZolin SODIUM IV Push 1 GM VIAL. IVP ONE (06:00)
--- NOTE | 2019-10-30 06:20 | NUR ---
Patient has rested quietly this shift. Pain medications offered frequently, Patient refused pain medication. Patient states "I am fine." "I don't need any." RN instructed Patient frequently to call for pain medication if she needs it. Patient verbalized understanding. Call light in reach. Patient remains NPO for surgery.
[2019-10-30] MEDS ORDERED: IV RINGERS,LACTATED 1000ML 1,000 ML IV SCH (07:00)
[2019-10-30] MEDS ORDERED: LIDOCAINE 1% PF 2 ML VIAL. ID PRN (07:00)
[2019-10-30] MEDS ORDERED: fentaNYL PF VIAL 100 MCG/2 ML VIAL IV PRN ×2 (07:00)
[2019-10-30] MEDS ORDERED: PROCHLORPERAZINE 10 MG/2 ML VIAL. IV PRN (07:00)
[2019-10-30] MEDS ORDERED: HYDROmorphone 2 MG/ML VIAL IV PRN (07:00)
[2019-10-30] MEDS ORDERED: MORPHINE SULFATE 2 MG/ML VIAL. IV PRN (07:00)
[2019-10-30] MEDS: IPRATRPIUM/ALBUTEROL 0.5/2.5MG 3 ML NEBU. NEB SCH ×4 (08:00→20:49)
[2019-10-30] MEDS ORDERED: fentaNYL PF VIAL 100 MCG/2 ML VIAL ONE (08:10)
[2019-10-30] MEDS ORDERED: PROPOFOL 20 ML IV ONE (08:40)
[2019-10-30] MEDS ORDERED: PHENYLEPHRINE in 0.9% NACL PF 1 MG/10 ML SYRINGE. IV ONE (08:40)
[2019-10-30] MEDS ORDERED: LIDOCAINE 2% PF 5 ML VIAL. ONE (08:40)
[2019-10-30] MEDS ORDERED: ePHEDrine PF IN SALINE 50 MG/10 ML SYRINGE. IV ONE (08:40)
[2019-10-30] MEDS ORDERED: DEXAMETHASONE SOD PHOS 4 MG/ML VIAL ONE (08:40)
[2019-10-30] MEDS ORDERED: ONDANSETRON PF 4 MG/2 ML VIAL. ONE (08:40)
[2019-10-30] MEDS ORDERED: SEVOFLURANE 61 TO 120 MINUTES. IH ONE (08:43)
[2019-10-30] MEDS: LOSARTAN POTASSIUM 25 MG TABLET. PO SCH (09:00)
[2019-10-30] MEDS: NON FORMULARY ITEM (Mirabegron (Myrbetriq) 25 MG) PO SCH (09:00)
[2019-10-30] MEDS: CITALOPRAM 20 MG TABLET. PO SCH ×2 (09:00→20:08)
[2019-10-30] MEDS: MEMANTINE 10 MG TABLET. PO SCH ×2 (09:00→20:08)
[2019-10-30] MEDS: ASPIRIN CHEWABLE 81 MG TABLET. PO SCH (09:00)
--- NOTE | 2019-10-30 09:05 | PDOC4 ---
Operative Note Operative Note Date of procedure: 10/30/2019 Surgeon: Shankar Carrera Asst.: Mi Maya, certified caregiver Preoperative diagnosis: Closed, displaced, comminuted, left intertrochanteric hi p fracture Postoperative diagnosis: Same Procedure performed: Closed reduction and intramedullary nailing of left hip fracture Anesthesia: Gen. Findings: Acute fracture Blood loss: 150mL Complications: none Components inserted: 10 x 18 [employer] InterTAN 125, 105 mm lag screw, 100 mm compression screw, distal interlocking screw Reason for procedure: Patient is a very pleasant elderly female who had a ground-level fall sustaining the above injury. Id seen her in consultation, please see my consult note for full details. We have discussed the risks, benefits, and alternatives to the above surgery and she wished to proceed. Description of procedure: Patient was greeted in the preoperative area by myself for the correct extremity was verified and marked. She was taken to the operative suite and her antibiotics were started as she was brought back. Once in the operating room, she underwent successful induction of a general anesthetic and was then transferred gently supine to the fracture table. She was placed into the appropriate position, left leg in a traction ski boot and right leg in the well-leg herzog. Padded perineal post was used. Her arms were secured above her chest across a pillow. I then brought in C-arm and perform a reduction maneuver confirming adequate reduction under biplanar fluoroscopy. After this, the left hip and leg were prepped and draped in our usual sterile fashion and we conducted our standard preoperative timeout. After this, I palpated for her greater trochanter and ASIS and harini a line on skin at the intersection point of these, I then made my skin incision and bluntly dissected down to the tip of the greater trochanter and used biplanar fluoroscopy to identify an appropriate starting point for my guidepin which I then advanced down past the lesser trochanter. I then gained entry to the proximal femur with the entry reamer using the soft tissue protector. After this I impacted my nail and position using fluoroscopy as a guide. I then placed the lateral trocar again skin, and incised skin in accordance with this and bluntly split down to bone. I then seated the trochars and used biplanar fluoroscopy to achieve as close to a center center position with the tip of my guidepin as I was able to. I then used my lateral entry drill and then placed my derotation bar. I then measured and drilled for my lag screw. After this I placed my lag screw followed by my compression screw. I then removed this trocar and placed the distal interlocking screw trocar again skin and made a stab incision and spread down to bone. I then seated this trocar and drilled and measured and then subsequently placed my distal interlocking screw. I then remove the insertion handle and trochars and took my final images. I was satisfied with fracture reduction and hardware position. The wounds were thoroughly irrigated. I injected my periarticular mixture into the dash-incisional soft tissues. Deep layers were closed with simple interrupted 0 Vicryl. Inverted interrupted 2-0 Vicryl was used for subcutaneous tissue and lori for skin. Sterile dressing was applied after the hip and leg were cleansed and dried. Traction was released after placement of the distal interlocking screw. The bed was reassembled and the perineal post was removed. She was laid gently supine on the fracture table. She was transferred gently supine to the hospital bed and taken to PACU in a stable and extubated condition. Postoperative plan is to allow full weightbearing. She will receive DVT and antibiotic prophylaxis. Shell be readmitted to the hospitalist. She will also receive PT and OT. SHANKAR CARRERA II, MD Oct 30, 2019 09:05
--- NOTE | 2019-10-30 11:01 | NUR ---
Pharmacy Warfarin Dosing Note S:Pharmacy consulted to assist with anticoagulation therapy started 10/30/19 with target INR: 1.6 - 2.5 O:NIKKY BERRY is a 89 year old F with a Hip Fracture LABS: Last INR: 1.3 Last HGB: 10 Last HCT: 30.1 Last PLT: 207 Drug Interaction Changes: New Interacting Drug Ongoing Drug Interactions: citalopram A:Baseline INR of 1.3 is below desired range of 1.6 - 2.5. Due to patient's elevated baseline INR and advanced age will start warfarin at a low dose. P: Warfarin dose: 4 mg Today at 1600 Bridge Therapy: None Next INR due 10/31/19 Pharmacy anticoagulation service will continue to follow. MARILU [facility], 10/30/19 [id number]
--- NOTE | 2019-10-30 11:34 | PDOC ---
PULMONARY PROGRESS NOTES Subjective S/P left hip replacement POD #0 on nasal cannula, denies cough or SOA nursing reports hypoxia without oxygen Vitals Vital Signs Date Time Temp Pulse Resp B/P (MAP) Pulse Ox O2 Delivery O2 Flow Rate FiO2 10/30/19 10:10 98.5 88 20 111/54 96 Nasal Cannula 2 98.5 ROS: No Nausea, No Chest Pain, No Abdominal Pain, No Increase Cough General: Alert Lungs: Crackles (fine bases ) Cardiovascular: S1, S2 Abdomen: Soft Neuro Exam: Alert Extremities: No Edema Skin: Dry Labs Laboratory Tests Test 10/28/19 23:55 10/29/19 01:30 White Blood Count 8.9 x10^3/uL (4.0-11.0) Red Blood Count 3.34 x10^6/uL (3.50-5.40) Hemoglobin 10.0 g/dL (12.0-15.5) Hematocrit 30.1 % (36.0-47.0) Mean Corpuscular Volume 90 fL (79-100) Mean Corpuscular Hemoglobin 30 pg (25-35) Mean Corpuscular Hemoglobin Concent 33 g/dL (31-37) Red Cell Distribution Width 14.7 % (11.5-14.5) Platelet Count 207 x10^3/uL (140-400) Neutrophils (%) (Auto) 86 % (31-73) Lymphocytes (%) (Auto) 7 % (24-48) Monocytes (%) (Auto) 6 % (0-9) Eosinophils (%) (Auto) 1 % (0-3) Basophils (%) (Auto) 1 % (0-3) Neutrophils # (Auto) 7.6 x10^3/uL (1.8-7.7) Lymphocytes # (Auto) 0.6 x10^3/uL (1.0-4.8) Monocytes # (Auto) 0.5 x10^3/uL (0.0-1.1) Eosinophils # (Auto) 0.1 x10^3/uL (0.0-0.7) Basophils # (Auto) 0.1 x10^3/uL (0.0-0.2) Segmented Neutrophils % 89 % (35-66) Band Neutrophils % 3 % (0-9) Lymphocytes % 5 % (24-48) Monocytes % 3 % (0-10) Platelet Estimate Adequate (ADEQUATE) Prothrombin Time 15.5 SEC (11.7-14.0) Prothromb Time International Ratio 1.3 (0.8-1.1) Sodium Level 139 mmol/L (136-145) Potassium Level 4.1 mmol/L (3.5-5.1) Chloride Level 103 mmol/L (98-107) Carbon Dioxide Level 25 mmol/L (21-32) Anion Gap 11 (6-14) Blood Urea Nitrogen 34 mg/dL (7-20) Creatinine 2.5 mg/dL (0.6-1.0) Estimated GFR (Cockcroft-Gault) 18.2 BUN/Creatinine Ratio 14 (6-20) Glucose Level 139 mg/dL (70-99) Calcium Level 8.5 mg/dL (8.5-10.1) Total Bilirubin 0.3 mg/dL (0.2-1.0) Aspartate Amino Transf (AST/SGOT) 15 U/L (15-37) Alanine Aminotransferase (ALT/SGPT) 7 U/L (14-59) Alkaline Phosphatase 70 U/L (46-116) Total Protein 6.2 g/dL (6.4-8.2) Albumin 3.0 g/dL (3.4-5.0) Albumin/Globulin Ratio 0.9 (1.0-1.7) Nasal Screen MRSA (PCR) Negative (Negative) Medications Active Scripts Medications Dose Route/Sig Max Daily Dose Days Date Category NITROGLYCERIN SubLingual (Nitroglycerin) 0.4 Mg Tab.subl 0.4 Mg SL PRN Q5MIN PRN 10/29/19 Reported Namenda (Memantine Hcl) 10 Mg Tablet 10 Mg PO BID 10/29/19 Reported Myrbetriq (Mirabegron) 25 Mg Tab.er.24h 25 Mg PO DAILY 10/29/19 Reported Melatonin 5 Mg Tab.subl 1 Tab SL QHS 30 10/29/19 Reported Losartan Potassium 50 Mg Tablet 6.25 Mg PO DAILY08 10/29/19 Reported Escitalopram Oxalate 10 Mg Tablet 1 Tab PO QHS 10/29/19 Reported Duoneb 0.5-3(2.5) Mg/3 Ml (Albuterol/Ipratropium) 3 Ml Ampul.neb 3 Ml NEB QID 10/29/19 Reported Calcitonin-[place] (Calcitonin,[place],Synthetic) 3.7 Ml [place].pump 1 [place] NS DAILY 30 10/29/19 Reported Budesonide 0.5 Mg/2 Ml Ampul.neb 1 Vial NEB BID 10/29/19 Reported Aspirin 81 Mg Tab.chew 1 Tab PO DAILY 10/29/19 Reported Impression . IMPRESSION: 1. Adult onset chronic obstructive pulmonary disease. 2. Acute left hip fracture S/P repair. 3. Osteoporosis. 4. Hypertension. 5. Acute hypoxic respiratory failure expected post-operatively Plan . cont. supplemental oxygen to keep sats above 92% IS at bedside NEBS follow surgery recs D/W DUSTY SALAZAR MD Oct 30, 2019 11:34
[2019-10-30] MEDS: BUDESONIDE 0.5 MG/2 ML NEBU. NEB SCH ×2 (12:25→20:49)
[2019-10-30] MEDS: IV NORMAL SALINE 1000ML BAG 1,000 ML IV SCH (16:59)
[2019-10-30] MEDS: CALCITONIN,SALMON NASAL 200 UNITS/SPRAY 3.7ML BOTTLE. NS SCH (16:59)
[2019-10-30] MEDS ORDERED: WARFARIN 5 MG TABLET. PO ONE (17:00)
[2019-10-30] MEDS ORDERED: WARFARIN 4 MG TABLET. PO ONE (17:00)
[2019-10-30] MEDS: ceFAZolin SODIUM IV Push 1 GM VIAL. IVP SCH ×2 (17:00→20:07)
[2019-10-31] MEDS: ceFAZolin SODIUM IV Push 1 GM VIAL. IVP SCH (02:27)
[2019-10-31] MEDS: IV NORMAL SALINE 1000ML BAG 1,000 ML IV SCH (03:24)
[2019-10-31 03:31] VITALS: BP 117/34
[2019-10-31 05:09] LABS: PROTHROMBIN TIME PATIENT 19.8 SEC (11.7-14.0)
[2019-10-31 06:42] VITALS: BP 107/47
[2019-10-31] MEDS: BUDESONIDE 0.5 MG/2 ML NEBU. NEB SCH ×2 (07:23→18:31)
[2019-10-31] MEDS: IPRATRPIUM/ALBUTEROL 0.5/2.5MG 3 ML NEBU. NEB SCH ×4 (07:24→18:30)
[2019-10-31] MEDS: NON FORMULARY ITEM (Mirabegron (Myrbetriq) 25 MG) PO SCH (09:00)
--- NOTE | 2019-10-31 09:46 | PDOC ---
PULMONARY PROGRESS NOTES Subjective S/P left hip replacement POD #1 on nasal cannula, denies cough or SOA Vitals Vital Signs Date Time Temp Pulse Resp B/P (MAP) Pulse Ox O2 Delivery O2 Flow Rate FiO2 10/31/19 07:24 100 Nasal Cannula 2.0 10/31/19 06:42 98.7 79 18 107/47 (67) 98.7 ROS: No Nausea, No Chest Pain, No Abdominal Pain, No Increase Cough General: Alert Lungs: Crackles (fine bases ) Cardiovascular: S1, S2 Abdomen: Soft Neuro Exam: Alert Extremities: No Edema Skin: Warm, Dry Labs Laboratory Tests Test 10/31/19 04:00 Prothrombin Time 19.8 SEC (11.7-14.0) Prothromb Time International Ratio 1.7 (0.8-1.1) Laboratory Tests Test 10/31/19 04:00 Prothrombin Time 19.8 SEC (11.7-14.0) Prothromb Time International Ratio 1.7 (0.8-1.1) Medications Active Scripts Medications Dose Route/Sig Max Daily Dose Days Date Category NITROGLYCERIN SubLingual (Nitroglycerin) 0.4 Mg Tab.subl 0.4 Mg SL PRN Q5MIN PRN 10/29/19 Reported Namenda (Memantine Hcl) 10 Mg Tablet 10 Mg PO BID 10/29/19 Reported Myrbetriq (Mirabegron) 25 Mg Tab.er.24h 25 Mg PO DAILY 10/29/19 Reported Melatonin 5 Mg Tab.subl 1 Tab SL QHS 30 10/29/19 Reported Losartan Potassium 50 Mg Tablet 6.25 Mg PO DAILY08 10/29/19 Reported Escitalopram Oxalate 10 Mg Tablet 1 Tab PO QHS 10/29/19 Reported Duoneb 0.5-3(2.5) Mg/3 Ml (Albuterol/Ipratropium) 3 Ml Ampul.neb 3 Ml NEB QID 10/29/19 Reported Calcitonin-[place] (Calcitonin,[place],Synthetic) 3.7 Ml [place].pump 1 [place] NS DAILY 30 10/29/19 Reported Budesonide 0.5 Mg/2 Ml Ampul.neb 1 Vial NEB BID 10/29/19 Reported Aspirin 81 Mg Tab.chew 1 Tab PO DAILY 10/29/19 Reported Impression . IMPRESSION: 1. Adult onset chronic obstructive pulmonary disease. 2. Acute left hip fracture S/P repair. 3. Osteoporosis. 4. Hypertension. 5. Acute hypoxic respiratory failure expected post-operatively Plan . cont. supplemental oxygen to keep sats above 92% IS at bedside NEBS follow surgery recs cont. Coumadin PT/OT DNR/DNI D/W DUSTY SALAZAR MD Oct 31, 2019 09:46
[2019-10-31] MEDS: MEMANTINE 10 MG TABLET. PO SCH ×2 (10:58→22:16)
[2019-10-31 11:00] VITALS: BP 99/34
[2019-10-31] MEDS: LOSARTAN POTASSIUM 25 MG TABLET. PO SCH (11:05)
[2019-10-31] MEDS: ASPIRIN CHEWABLE 81 MG TABLET. PO SCH (11:09)
[2019-10-31] MEDS: CALCITONIN,SALMON NASAL 200 UNITS/SPRAY 3.7ML BOTTLE. NS SCH (11:10)
--- NOTE | 2019-10-31 12:03 | PDOC ---
ORTHO PROGRESS NOTES Subjective She denies pain at rest. Has not been up. Tolerating reg diet Vitals Vital Signs Date Time Temp Pulse Resp B/P (MAP) Pulse Ox O2 Delivery O2 Flow Rate FiO2 10/31/19 11:34 93 Room Air 10/31/19 11:05 79 107/47 10/31/19 11:00 98.6 20 2.0 98.6 Labs Laboratory Tests Test 10/31/19 04:00 Prothrombin Time 19.8 SEC (11.7-14.0) Prothromb Time International Ratio 1.7 (0.8-1.1) Laboratory Tests Test 10/31/19 04:00 Prothrombin Time 19.8 SEC (11.7-14.0) Prothromb Time International Ratio 1.7 (0.8-1.1) Notes A and A in bed normal motor and sensation distally LLE, dressing with expected amount of bloody drainage Assessment and Plan cont anticoag, up with PT/OT will likely need placement GALI CARRERA II, MD Oct 31, 2019 12:03
--- NOTE | 2019-10-31 12:42 | NUR ---
Pharmacy Warfarin Dosing Note S:Pharmacy consulted to assist with anticoagulation therapy started 10/30/19 with target INR: 1.6 - 2.5 O:NIKKY BERRY is a 89 year old F with Hip Fracture LABS: Last INR: 1.7 Last HGB: 10 Last HCT: 30.1 Last PLT: 207 Last dose of 4 mg given on 10/30/19 at 1700 Previous Regimen: Vitamin K given: N Drug Interaction Changes: New Interacting Drug Ongoing Drug Interactions: citalopram A:INR of 1.7 is within desired range. Target range for this patient is: 1.6 - 2.5 P: Warfarin dose: 2 mg Today at 1600 Bridge Therapy: None Next INR due TOMORROW. Pharmacy anticoagulation service will continue to follow. EDUARDO SORTO [facility], 10/31/19 [id number]
--- NOTE | 2019-10-31 13:52 | PDOC ---
[employer] PROGRESS NOTE Chief Complaint Chief Complaint Postop day 1 left hip repair (closed reduction with intramedullary nailing) mechanical fall Intertrochanteric left hip fracture is seen with varus deformity and proximal migration of the distal component. Decreased bone mineral density. Osteoporosis COPD hx HTN Dementia History of Present Illness History of Present Illness [id number] Patient seen and examined Chart reviewed Discussed with family and RN Her wound looks clean Vitals/I&O Vitals/I&O: Vital Signs Date Time Temp Pulse Resp B/P (MAP) Pulse Ox O2 Delivery O2 Flow Rate FiO2 10/31/19 11:34 93 Room Air 10/31/19 11:05 79 107/47 10/31/19 11:00 98.6 20 2.0 98.6 I & O 10/30/19 10/30/19 10/31/19 15:00 23:00 07:00 Intake Total 300 ml 150 ml Output Total 150 ml 400 ml Balance 150 ml -250 ml Physical Exam General: Cooperative, Other Heart: Regular rate, Normal S1 (pleasantly confused) Lungs: Crackles (fine bases ) Abdomen: Normal bowel sounds, Soft Extremities: No cyanosis Labs Labs: Laboratory Tests Test 10/31/19 04:00 Prothrombin Time 19.8 SEC (11.7-14.0) Prothromb Time International Ratio 1.7 (0.8-1.1) Review of Systems Review of Systems: Complains of pain complains of weakness Assessment and Plan Assessmemt and Plan Problems Medical Problems: (1) Chronic kidney disease Status: Acute (2) Intertrochanteric fracture of left femur Status: Acute Postop day 1 left hip repair (closed reduction with intramedullary nailing) mechanical fall Intertrochanteric left hip fracture is seen with varus deformity and proximal migration of the distal component. Decreased bone mineral density. Osteoporosis COPD hx HTN Dementia Plan Wound care Trend hemoglobin PT OT Home meds DVT prophylaxis DNR senior care unit evaluation Encourage by mouth intake Comment Review of Relevant I have reviewed the following items geovany (where applicable) has been applied. Medications: Current Medications Medications (Trade) Dose Ordered Sig/Marcell Route PRN Reason Start Time Stop Time Status Last Admin Dose Admin Cefazolin Sodium (Ancef) 1 gm Q6H IVP 10/30/19 14:00 10/31/19 02:01 DC 10/31/19 02:27 Warfarin Sodium (Coumadin) 4 mg 1X WARF ONCE PO 10/30/19 17:00 10/30/19 17:01 DC 10/30/19 17:00 DIEGO MARISCAL III DO Oct 31, 2019 13:52
[2019-10-31 15:00] VITALS: BP 108/51
[2019-10-31] MEDS ORDERED: WARFARIN 2 MG TABLET. PO ONE (16:00)
[2019-10-31 19:35] VITALS: BP 109/33
[2019-10-31] MEDS: CITALOPRAM 20 MG TABLET. PO SCH (22:16)
[2019-10-31 22:50] VITALS: BP 101/40
[2019-11-01 02:50] VITALS: BP 113/47
[2019-11-01] MEDS: IV NORMAL SALINE 1000ML BAG 1,000 ML IV SCH (03:37)
[2019-11-01 05:57] LABS: PROTHROMBIN TIME PATIENT 26.9 SEC (11.7-14.0)
[2019-11-01 07:00] VITALS: BP 111/41
--- NOTE | 2019-11-01 07:25 | PDOC ---
ORTHO PROGRESS NOTES Subjective Patient with no complaint of pain, but RN states painful on logrolling. Post-op Day: 2 Procedure IM Nail Left Hip Vitals Vital Signs Date Time Temp Pulse Resp B/P (MAP) Pulse Ox O2 Delivery O2 Flow Rate FiO2 11/01/19 02:50 98.3 90 20 113/47 (69) 93 Room Air 98.3 10/31/19 20:00 2.0 Labs Laboratory Tests Test 10/31/19 04:00 11/01/19 04:12 Prothrombin Time 19.8 SEC (11.7-14.0) 26.9 SEC (11.7-14.0) Prothromb Time International Ratio 1.7 (0.8-1.1) 2.5 (0.8-1.1) Laboratory Tests Test 11/01/19 04:12 Prothrombin Time 26.9 SEC (11.7-14.0) Prothromb Time International Ratio 2.5 (0.8-1.1) Notes Patient easily awakened and alert Assessment and Plan POD # 2 S/P IM Nail Left Hip motor and sensation intact LLE calf soft and non tender dressing dry and intact Pain meds prior to PT ADILENE FARMER APRN Nov 01, 2019 07:25
[2019-11-01] MEDS: BUDESONIDE 0.5 MG/2 ML NEBU. NEB SCH (07:32)
[2019-11-01] MEDS: IPRATRPIUM/ALBUTEROL 0.5/2.5MG 3 ML NEBU. NEB SCH ×2 (07:32→11:28)
[2019-11-01] MEDS: ASPIRIN CHEWABLE 81 MG TABLET. PO SCH (08:49)
[2019-11-01] MEDS: LOSARTAN POTASSIUM 25 MG TABLET. PO SCH (08:50)
[2019-11-01] MEDS: MEMANTINE 10 MG TABLET. PO SCH (08:50)
[2019-11-01] MEDS: CALCITONIN,SALMON NASAL 200 UNITS/SPRAY 3.7ML BOTTLE. NS SCH (08:50)
[2019-11-01] MEDS: NON FORMULARY ITEM (Mirabegron (Myrbetriq) 25 MG) PO SCH (09:00)
--- NOTE | 2019-11-01 10:34 | NUR ---
Pharmacy Warfarin Dosing Note S: Pharmacy consulted to assist with anticoagulation therapy started 10/30/19 O: NIKKY BERRY is a 89 year old F with a hip fracture, POD #2 repair LABS: Last INR: 2.5 Last HGB: 10 Last HCT: 30.1 Last PLT: 207 Last dose of 2 mg given on 10/31/19 at 1857 Vitamin K given: N Ongoing Drug Interactions: citalopram A:INR of 2.5 is within desired range. Patient has received warfarin 4 mg x 1 dose (10/30) and 2 mg x 1 dose (10/31). Although INR is in desired range, this value has increased significantly from yesterday's INR of 1.7. Will not give a warfarin dose this evening to prevent a supra-therapeutic level. P: HOLD warfarin dose for 2/3 Bridge Therapy: None Next INR due 11/02/19 Pharmacy anticoagulation service will continue to follow. MARILU BLACKWOOD [facility] [place], 11/01/19 0411
--- NOTE | 2019-11-01 10:39 | NUR ---
ANGELIC following. Discussed with RN, pt from the [facility] recommending SNU. ANGELIC spoke with pt's daughter, Echo ([phone]), she would like referral sent to [facility]. ANGELIC faxed referral, awaiting acceptance decision. Addendum: 11/01/19 at 1115 by RASHIDA ATWOOD Pt accepted at [facility]. Awaiting discharge paperwork. RN notified. Addendum: 11/01/19 at 1314 by RASHIDA ATWOOD Transportation arranged for 1430. ANGELIC notified pt and pt's daughter, Echo. Echo gave verbal permission to sign pt choice and rights form - placed on chart. RN notified.
[2019-11-01 11:00] VITALS: BP 105/46
[2019-11-01] MEDS ORDERED: WARF2.5T83 MC (12:22)
--- NOTE | 2019-11-01 12:23 | SNU/HH DC ---
DISCHARGE ORDERS DISCHARGE INFORMATION: DISCHARGE DATE: Nov 01, 2019 FINAL DIAGNOSIS Problems Medical Problems: (1) Chronic kidney disease Status: Acute (2) Intertrochanteric fracture of left femur Status: Acute CONDITION ON DISCHARGE: Stable CODE STATUS: Code Status: Full HALF-WAY: SNF STAY <30 DAYS: Yes POST DISCHARGE ORDERS: ACTIVITY ORDERS: Activity as tolerated WEIGHT BEARING STATUS: Full weight bearing, As tolerated DIET AFTER DISCHARGE: Cardiac TREATMENT/EQUIPMENT ORDERS: Physical Therapy For: Evalulation/Treatment Occupational Therapy For: Evaluation/Treatment DISCHARGE MEDICATIONS: Home Meds Active Scripts Warfarin Sodium (COUMADIN) 2.5 Mg Tablet, 1 EACH MC 1X WARF for dvt ppx for 14 Days, #14 TAB Prov:MISAEL BHAT MD 11/01/19 Reported Medications Nitroglycerin (NITROGLYCERIN SubLingual) 0.4 Mg Tab.subl, 0.4 MG SL PRN Q5MIN PRN for CHEST PAIN, BOTTLE 10/29/19 Memantine Hcl (NAMENDA) 10 Mg Tablet, 10 MG PO BID for dementia, TAB 10/29/19 Mirabegron (MYRBETRIQ) 25 Mg Tab.er.24h, 25 MG PO DAILY for urinary frequency, TAB.SR 10/29/19 Melatonin (MELATONIN) 5 Mg Tab.subl, 1 TAB SL QHS for sleep for 30 Days, #30 TAB 0 Refills 10/29/19 Losartan Potassium (LOSARTAN POTASSIUM) 50 Mg Tablet, 6.25 MG PO DAILY08 for HYPERTENSION, TAB 10/29/19 Escitalopram Oxalate (ESCITALOPRAM OXALATE) 10 Mg Tablet, 1 TAB PO QHS for depression, #30 TAB 3 Refills 10/29/19 Ipratropium/Albuterol Sulfate (DUONEB 0.5-3(2.5) MG/3 ML) 3 Ml Ampul.neb, 3 ML NEB QID for COPD, EACH 10/29/19 Calcitonin,[place],Synthetic (CALCITONIN-[place]) 3.7 Ml [place].pump, 1 SPRAY NS D AILY for hormone replacement for 30 Days, #1 BOTTLE 0 Refills 10/29/19 Budesonide (BUDESONIDE) 0.5 Mg/2 Ml Ampul.neb, 1 VIAL NEB BID for COPD, #120 ML 3 Refills 10/29/19 Discontinued Reported Medications Aspirin (ASPIRIN) 81 Mg Tab.chew, 1 TAB PO DAILY for prophylactic, #30 TAB 3 Refills 10/29/19 MISAEL BHAT MD Nov 01, 2019 12:23
--- NOTE | 2019-11-01 12:28 | PDOC3 ---
Discharge Summary Visit Information Date of Admission: Oct 27, 2019 Date of Discharge: Nov 01, 2019 Final Diagnosis Problems Medical Problems: (1) Chronic kidney disease Status: Acute (2) Intertrochanteric fracture of left femur Status: Acute Brief Hospital Course Allergies Allergies Coded Allergies Type Severity Reaction Last Updated Verified No Known Drug Allergies 10/28/19 No Vital Signs GENERAL: No apparent distress. Alert and oriented. HEENT: Head normocephalic, atraumatic. NECK: Supple LUNGS: Clear to auscultation. HEART: RRR, S1, S2 present, pulses intact ABDOMEN: Soft, positive bowel sounds. EXTREMITIES: No cyanosis or edema. NEUROLOGIC: Normal speech, normal tone PSYCHIATRIC: Normal affect, normal mood. SKIN: No ulceration. Vital Signs Date Time Temp Pulse Resp B/P (MAP) Pulse Ox O2 Delivery O2 Flow Rate FiO2 11/01/19 11:29 95 Room Air 11/01/19 11:00 97.7 84 18 105/46 (65) 97.7 10/31/19 20:00 2.0 Lab Results Laboratory Tests Test 10/31/19 04:00 11/01/19 04:12 Prothrombin Time 19.8 SEC (11.7-14.0) 26.9 SEC (11.7-14.0) Prothromb Time International Ratio 1.7 (0.8-1.1) 2.5 (0.8-1.1) Laboratory Tests Test 11/01/19 04:12 Prothrombin Time 26.9 SEC (11.7-14.0) Prothromb Time International Ratio 2.5 (0.8-1.1) Brief Hospital Course Ms. Smith is a 89 old [sex] who presented from a [place] after sustaining a ground level fall and sustained a left hip fracture. s/p repair with closed reduction with IM nailing by ortho. tolerated PT well. all home meds resumed. will be discharged on oral AC for 1 month. will stop ASA and can resume ASA after comple tion of coumadin. patient [facility] be [facility] with ongoing PT. patient is a DNR Discharge Information Condition at Discharge: Improved Follow Up: Weeks Disposition/Orders: D/C to Home Scheduled Budesonide (Budesonide) 0.5 Mg/2 Ml Ampul.neb, 1 VIAL NEB BID for COPD, #120 Ref 3 (Reported) Entered as Reported by: ANGELLA PONCE on 10/29/19815 Last Action: Continued on 10/29/191299 by CAMILO DE LA O RN Calcitonin,[place],Synthetic (Calcitonin-[place]) 3.7 Ml [place].pump, 1 SPRAY NS DAILY for hormone replacement for 30 Days, #1 Ref 0 (Reported) Entered as Reported by: ANGELLA PONCE on 10/29/19815 Last Action: Continued on 10/29/191299 by CAMILO DE LA O RN Escitalopram Oxalate (Escitalopram Oxalate) 10 Mg Tablet, 1 TAB PO QHS for depression, #30 Ref 3 (Reported) Entered as Reported by: ANGELLA PONCE on 10/29/19815 Last Action: Converted on 10/29/191299 by CAMILO DE LA O RN Ipratropium/Albuterol Sulfate (Duoneb 0.5-3(2.5) Mg/3 Ml) 3 Ml Ampul.neb, 3 ML NEB QID for COPD, (Reported) Entered as Reported by: ANGELLA PONCE on 10/29/19815 Last Action: Continued on 10/29/191299 by CAMILO DE LA O RN Losartan Potassium (Losartan Potassium) 50 Mg Tablet, 6.25 MG PO DAILY08 for HYPERTENSION, (Reported) Entered as Reported by: ANGELLA PONCE on 10/29/19815 Last Action: Continued on 10/29/19 1300 by CAMILO DE LA O RN Melatonin (Melatonin) 5 Mg Tab.subl, 1 TAB SL QHS for sleep for 30 Days, #30 Ref 0 (Reported) Entered as Reported by: ANGELLA PONCE on 10/29/19815 Last Action: Converted on 10/29/19 1300 by CAMILO DE LA O RN Memantine Hcl (Namenda) 10 Mg Tablet, 10 MG PO BID for dementia, (Reported) Entered as Reported by: ANGELLA PONCE on 10/29/19815 Last Action: Continued on 10/29/19 1300 by CAMILO DE LA O RN Mirabegron (Myrbetriq) 25 Mg Tab.er.24h, 25 MG PO DAILY for urinary frequency, (Reported) Entered as Reported by: ANGELLA PONCE on 10/29/19815 Last Action: Converted on 10/29/19 1300 by CAMILO DE LA O RN Warfarin Sodium (Coumadin) 2.5 Mg Tablet, 1 EACH MC 1X WARF for dvt ppx for 14 Days, #14 Prescribed by: MISAEL BHAT MD on 11/01/19 1222 Scheduled PRN Nitroglycerin (NITROGLYCERIN SubLingual) 0.4 Mg Tab.subl, 0.4 MG SL PRN Q5MIN PRN for CHEST PAIN, (Reported) Entered as Reported by: ANGELLA PONCE on 10/29/19 0816 Last Action: Continued on 10/29/19 1300 by CAMILO DE LA O RN Discontinued Medications Aspirin (Aspirin) 81 Mg Tab.chew, 1 TAB PO DAILY for prophylactic, #30 Ref 3 (Reported) Entered as Reported by: ANGELLA PONCE on 10/29/19 0755 Last Action: Continued on 10/29/19 1300 by MARILEE PERES MANEESH MD Nov 01, 2019 12:28
== END 2019-11-01 12:52 | DRG 480 ==
LOC: ER 21:41 → 4 NORTH 23:49
PROVIDERS: ADMIT Internal Medicine; ATTEND Internal Medicine
PROC: 0QS706Z Reposition Left Upper Femur with Intramedullary Internal Fixation Device, Open Approach (ICD-10-PCS; principal; 2019-10-30 08:00)
DX: S72.142A Displaced intertrochanteric fracture of left femur, initial encounter for closed fracture (principal); J96.01 Acute respiratory failure with hypoxia; J98.11 Atelectasis; F03.90 Unspecified dementia, unspecified severity, without behavioral disturbance, psychotic disturbance, mood disturbance, and anxiety; I12.9 Hypertensive chronic kidney disease with stage 1 through stage 4 chronic kidney disease, or unspecified chronic kidney disease; I25.10 Atherosclerotic heart disease of native coronary artery without angina pectoris; I25.2 Old myocardial infarction; J44.9 Chronic obstructive pulmonary disease, unspecified; M81.0 Age-related osteoporosis without current pathological fracture; N18.3 Chronic kidney disease, stage 3 (moderate); M19.90 Unspecified osteoarthritis, unspecified site; Z96.642 Presence of left artificial hip joint; Z66 Do not resuscitate; Z82.49 Family history of ischemic heart disease and other diseases of the circulatory system; Z99.81 Dependence on supplemental oxygen; W18.39XA Other fall on same level, initial encounter; Y93.89 Activity, other specified; Y92.89 Other specified places as the place of occurrence of the external cause; Y99.8 Other external cause status; M21.152 Varus deformity, not elsewhere classified, left hip
CPT/HCPCS: 36415; 71045; 73501; 76000; 80053; 85007; 85025; 85610; 87641; 93005; 94640; 94760; A7015; C1713; C1887; J0171; J0630; J0690; J1100; J2001; J2270; J2370; J2405; J2704; J3010; J7030; J7620; J7626; 97110; 97530; 99285-25; G0378

== ENCOUNTER → 2019-11-12 | Outpatient (CLI) | payer MEDICARE, OTHER ==
[2019-11-08 12:51] VITALS: BP 129/60
[~2019-11-12] MED LIST: ASPI-630 PO; BUDE0.5A NEB; CALC3.7S5 NS; ESCITALOPRAM OX10 MG PO; IPRA3AMP29 NEB; LOSA-73 PO; MELA5TAB11 SL; MEMA10TA PO; MIRA25TA PO; NITR0.4T22 SL; WARF2.5T83 MC
--- NOTE | 2019-11-12 14:49 | RAD ---
PROCEDURE: HIP LEFT 1 VIEW WITH PELVIS STUDY DATE: 11/12/2019 CLINICAL INDICATION / HISTORY: 2 week post op left hip surgery . TECHNIQUE: AP pelvis and frog-leg left hip views of the pelvis and left hip were obtained COMPARISON: Pelvis and left hip x-rays of 10/29/2019 FINDINGS: Interval dynamic hip screw fixation of the comminuted intratrochanteric left hip fracture has occurred with buddhist of near-anatomic alignment. No significant callus formation across the fracture line is evident but the fracture margins are less well defined, compatible with a healing response. The distal prosthesis is unremarkable. Soft tissues show arterial calcifications and otherwise are unremarkable. Incidental vertebroplasty cement in the lower lumbar spine. IMPRESSION: Dynamic hip screw fixation of a left intertrochanteric fracture with near-anatomic alignment showing early findings suggesting a healing response. Electronically signed by: Dorene Lindsay MD (11/12/2019 2:46 PM) [id number]
== END ==
LOC: PMGORTHO 11:05
PROVIDERS: ATTEND Physician Assistant

== ENCOUNTER → 2019-11-22 | Outpatient (CLI) | payer MEDICARE ==
[2019-11-08 12:51] VITALS: BP 129/60
[2019-11-22 06:20] LABS: PROTHROMBIN TIME PATIENT 26.4 SEC (11.7-14.0)
== END | disposition home or self-care (01) ==
LOC: SPEC 00:30 → EDSTATUS 12-29 09:32
PROVIDERS: ATTEND Internal Medicine
DX: Z51.81 Encounter for therapeutic drug level monitoring (principal); Z79.01 Long term (current) use of anticoagulants
CPT/HCPCS: 36415; 85610